=== PATIENT | male | born 1970 | race Caucasian/White ===

== ENCOUNTER 2021-09-04 01:40 | Emergency (ER) | payer BC, OTHER ==
[~2021-09-04] VITALS: Ht 162.6 cm; Wt 81.6 kg
[2021-09-04 01:45] VITALS: BP 159/101
--- NOTE | 2021-09-04 01:53 | NUR ---
patient ambulated to bed 1
--- NOTE | 2021-09-04 01:57 | NUR ---
ERMD at bedside for examination
--- NOTE | 2021-09-04 02:00 | NUR ---
RT at bedside for examination
[2021-09-04] MEDS ORDERED: ALBUTEROL 0.083% 2.5 MG/3 ML NEBU INH ONE ×2 (02:03→02:05)
[2021-09-04] MEDS ORDERED: FAMOTIDINE 20 MG/2 ML VIAL IVP ONE (02:05)
[2021-09-04] MEDS ORDERED: DEXAMETHASONE 10 MG/ML VIAL IVP ONE (02:05)
[2021-09-04] MEDS ORDERED: EPINEPHrine 1 MG/ML AMP IM ONE (02:05)
--- NOTE | 2021-09-04 02:25 | NUR ---
Pt in bed, no acute respiratory distress. 02 sat in RA at 88%. RT at bedside, administering breathing treatment. Informed pt and administered all ordered meds without event.
--- NOTE | 2021-09-04 03:05 | NUR ---
Pt requesting to use toilet. Pt states breathing improved much better. Pt ambulated to and back from toilet via steady gait.
[2021-09-04] MEDS ORDERED: EPIN1KIT31 IM (03:41)
[2021-09-04 03:49] VITALS: BP 120/77
--- NOTE | 2021-09-04 03:49 | NUR ---
Patient discharged with v/s stable. Written and verbal after care instructions given and explained. Patient alert, oriented and verbalized understanding of instructions. Ambulatory with steady gait. All questions addressed prior to discharge. ID band removed. Patient advised to follow up with PMD. Rx of epi pen given. Patient educated on indication of medication including possible reaction and side effects. Opportunity to ask questions provided and answered.
== END 2021-09-04 03:49 | disposition home or self-care (01) ==
LOC: MED 01:40
DX: T78.2XXA Anaphylactic shock, unspecified, initial encounter (principal)
CPT/HCPCS: 94640; 96372; 96374; 96375; 99291; J0171; J1100; J3490; J7613

== ENCOUNTER 2022-02-26 05:10 | Emergency (ER) | payer BC ==
[~2022-02-26] VITALS: Ht 162.6 cm; Wt 81.6 kg
[~2022-02-26 05:10] MED LIST: EPIN1KIT31 IM
[2022-02-26 05:20] VITALS: BP 135/100
--- NOTE | 2022-02-26 05:20 | NUR ---
TO BED AMBULATORY
[2022-02-26] MEDS ORDERED: predniSONE 20 MG TAB PO ONE (05:30)
[2022-02-26] MEDS ORDERED: ALBUTEROL 0.083% 2.5 MG/3 ML NEBU INH ONE ×2 (05:30→06:15)
[2022-02-26] MEDS ORDERED: ALBUTEROL SULFATE/IPRATROPIU 3 ML SOL IH ONE (05:30)
--- NOTE | 2022-02-26 05:35 | NUR ---
Respiratory Therapist at bedside for respiratory intervention.
--- NOTE | 2022-02-26 05:43 | NUR ---
X-Ray at bedside.
--- NOTE | 2022-02-26 06:00 | NUR ---
18G RIGHT AC IV ESTABLISHED . BLOOD COLLECTED AND HANDED TO LAB
[2022-02-26 06:02] LABS: BASOPHILS # (AUTO) 0.1 K/uL (0.00-0.22); BASOPHILS % (AUTO) 1.2 % (0.0-2.0); EOSINOPHILS # (AUTO) 0.4 K/uL (0-0.4); EOSINOPHILS % (AUTO) 5.6 % (0.0-4.0); HEMOGLOBIN 14.1 g/dL (12.0-18.0); LYMPHOCYTES # (AUTO) 2.6 K/uL (2.0-11.5); LYMPHOCYTES % (AUTO) 40.5 % (20.5-51.1); MEAN CORPUSCULAR HEMOGLOBIN 29 pg (27-31); MEAN CORPUSCULAR HGB CONC 34 g/dL (33-37); MONOCYTES # (AUTO) 0.4 K/uL (0.8-1.0); MONOCYTES % (AUTO) 5.7 % (1.7-9.3); NEUTROPHILS # (AUTO) 3.1 K/uL (1.8-7.7); PLATELET COUNT (AUTO) 248 K/uL (140-450); RED BLOOD CELL COUNT(AUTO) 4.89 MIL/uL (4.20-6.10); WHITE BLOOD COUNT (AUTO) 6.5 K/uL (4.8-10.8)
--- NOTE | 2022-02-26 06:03 | NUR ---
WENDI COLLECTED AND HANDED TO LAB
--- NOTE | 2022-02-26 06:10 | NUR ---
Dr. London examining patient.
[2022-02-26] MEDS ORDERED: NACL 0.9% 1,000 ML IV ONE (06:15)
[2022-02-26 06:21] LABS: ALBUMIN 3.9 g/dL (3.4-5.0); ANION GAP 12.4 (8-16); CREATININE 0.7 mg/dL (0.6-1.3); POTASSIUM 3.4 mmol/L (3.5-5.1); TOTAL BILIRUBIN 0.4 mg/dL (0.0-1.0)
--- NOTE | 2022-02-26 06:26 | NUR ---
Respiratory Therapist at bedside for respiratory intervention.
--- NOTE | 2022-02-26 06:30 | NUR ---
ASSUME CARE OF PT AT THIS TIME, PT C/O SOB SINCE THIS MORNING, DENIES ANY MEDICAL HISTORY, PT ON [employer], PT STATES HE CAN BREATH BETTER AFTER TWO PRIOR BREATHIG TREATMENTS.
[2022-02-26] MEDS ORDERED: predniSONE 20 MG TAB ONE (06:40)
[2022-02-26] MEDS ORDERED: MAG SULF 2000 MG/WATER PREMIX 50 ML IV ONE (06:40)
--- NOTE | 2022-02-26 07:11 | NUR ---
REPORT GIVEN TO CATHERINE STONE.
--- NOTE | 2022-02-26 08:12 | NUR ---
PT AMBULATED TO RESTROOM
[2022-02-26 08:21] VITALS: BP 134/68
[2022-02-26] MEDS ORDERED: PRED20TA5 PO (08:25)
[2022-02-26] MEDS ORDERED: ALBU0.0912 IH (08:25)
--- NOTE | 2022-02-26 08:30 | NUR ---
Patient discharged with v/s stable. Written and verbal after care instructions given and explained. Patient alert, oriented and verbalized understanding of instructions. Ambulatory with steady gait. All questions addressed prior to discharge. ID band removed. Patient advised to follow up with PMD. Rx of ALBUTEROL AND PREDNISONE given. Patient educated on indication of medication including possible reaction and side effects. Opportunity to ask questions provided and answered.
== END 2022-02-26 08:30 | disposition home or self-care (01) ==
LOC: MED 05:10
DX: J98.01 Acute bronchospasm (principal); Z20.822 Contact with and (suspected) exposure to COVID-19
CPT/HCPCS: 36415; 71045; 80053; 83880; 84484; 85025; 87426; 93005; 94640; 94760; 96365; 96366; 99285; J3475; J7512; J7613; Q0092

== ENCOUNTER 2023-07-20 01:45 | Inpatient (IN) | payer BC ==
[~2023-07-20] VITALS: Ht 162.6 cm; Wt 84.8 kg
[2023-07-20] VITALS (13 sets, daily range): BP systolic 110–145; BP diastolic 72–96; PULSE 88–115; RESP 16–24; TEMP 97.4–98.5; O2SAT 92–97
[~2023-07-20 01:45] MED LIST changes: +ALBU0.0912 IH; +PRED20TA5 PO
[2023-07-20] MEDS: methylPREDNISolone SS 125 MG/2 ML VIAL IVP ONE (02:16)
[2023-07-20] MEDS: ALBUTEROL SULFATE/IPRATROPIU 3 ML SOL IH ONE (02:19)
[2023-07-20] MEDS: ALBUTEROL 0.083% 2.5 MG/3 ML NEBU INH ONE (02:59)
[2023-07-20] MEDS: IPRATROPIUM 0.02% 0.5 MG/2.5 ML NEBU INH ONE (02:59)
[2023-07-20 03:27] LABS: FLU A ANTIGEN negative (NEGATIVE); FLU B ANTIGEN NEGATIVE (NEGATIVE)
[2023-07-20 03:44] LABS: BASOPHILS # (AUTO) 0.1 K/uL (0.00-0.22); BASOPHILS % (AUTO) 0.5 % (0.0-2.0); EOSINOPHILS # (AUTO) 0.3 K/uL (0-0.4); EOSINOPHILS % (AUTO) 2.7 % (0.0-4.0); HEMATOCRIT 40.6 % (36-52); HEMOGLOBIN 13.9 g/dL (12.0-18.0); LYMPHOCYTES # (AUTO) 2.8 K/uL (2.0-11.5); LYMPHOCYTES % (AUTO) 26.8 % (20.5-51.1); MEAN CORPUSCULAR HEMOGLOBIN 29 pg (27-31); MEAN CORPUSCULAR HGB CONC 34 g/dL (33-37); MEAN CORPUSCULAR VOLUME 85.4 fL (80-94); MONOCYTES # (AUTO) 0.5 K/uL (0.8-1.0); MONOCYTES % (AUTO) 4.9 % (1.7-9.3); NEUTROPHILS # (AUTO) 6.8 K/uL (1.8-7.7); NEUTROPHILS % (AUTO) 65.1 % (42.2-75.2); PLATELET COUNT (AUTO) 235 K/uL (140-450); RED BLOOD CELL COUNT(AUTO) 4.76 MIL/uL (4.20-6.10); RED CELL DISTRIBUTION WIDTH 12.8 % (11.6-13.7); WHITE BLOOD COUNT (AUTO) 10.4 K/uL (4.8-10.8)
[2023-07-20] MEDS ORDERED: cefTRIAXone 1,000 MG VIAL ONE (04:00)
[2023-07-20] MEDS ORDERED: AZITHROMYCIN 500 MG INJ VIAL IV ONE (04:10)
[2023-07-20 04:11] LABS: ANION GAP 13.7 (8-16); CALCIUM 8.8 mg/dL (8.5-10.1); CARBON DIOXIDE 26.5 mmol/L (21-32); CHLORIDE 103 mmol/L (98-107); CREATININE 0.7 mg/dL (0.6-1.3); GFR ARICAN-AMERICAN 152 mL/min (>90); GFR NON ARICAN-AMERICAN 125 mL/min (>90); GLUCOSE 141 mg/dL (74-106); POTASSIUM 3.2 mmol/L (3.5-5.1); SODIUM SERUM 140 mmol/L (136-145); UREA NITROGEN, BLOOD 17 mg/dL (7-18)
[2023-07-20 04:12] LABS: ALANINE AMINOTRANSFERASE 23 U/L (12-78); ALBUMIN 3.8 g/dL (3.4-5.0); ASPARTATE AMINOTRANSFERASE 15 U/L (15-37)
[2023-07-20] MEDS: AZITHROMYCIN 500 MG in DEXTROSE 5% 250 ML IV ONE (04:28)
[2023-07-20 04:30] LABS: ALKALINE PHOSPHATASE 84 U/L (50-136); TOTAL BILIRUBIN 0.4 mg/dL (0.0-1.0); TOTAL PROTEIN, SERUM 8.3 g/dL (6.4-8.2)
[2023-07-20] MEDS ORDERED: DEXAMETHASONE 10 MG/ML VIAL IVP SCH (05:00)
[2023-07-20] MEDS ORDERED: AMPICILLIN/SULBACTAM 1.5 GM VIAL ONE (05:47)
[2023-07-20] MEDS: AMPICILLIN/SULBACTAM 1.5 GM in NACL 0.9% 50 ML IV SCH (05:57)
[2023-07-20] MEDS ORDERED: methylPREDNISolone SS 40 MG in WATER STERILE 1 ML IV SCH (06:05)
[2023-07-20] MEDS ORDERED: methylPREDNISolone SS 40 MG/ML VIAL IVP SCH (07:10)
[2023-07-20] MEDS: ALBUTEROL SULFATE/IPRATROPIU 3 ML SOL IH SCH (07:52)
[2023-07-20] MEDS ORDERED: ALBUTEROL SULFATE/IPRATROPIU 3 ML SOL IH PRN (13:05)
[2023-07-20] MEDS: methylPREDNISolone SS 40 MG/ML VIAL IVP SCH (21:09)
[2023-07-20] MEDS: POTASSIUM CHLORIDE 10 MEQ TABER PO ONE (22:41)
[2023-07-21] VITALS (13 sets, daily range): BP systolic 114–139; BP diastolic 63–75; PULSE 78–118; RESP 16–20; TEMP 97.4–99.4; O2SAT 91–98
[2023-07-21 06:55] LABS: BASOPHILS % (AUTO) 0.2 % (0.0-2.0); EOSINOPHILS % (AUTO) 0.1 % (0.0-4.0); HEMOGLOBIN 13.2 g/dL (12.0-18.0); LYMPHOCYTES # (AUTO) 1.4 K/uL (2.0-11.5); MEAN CORPUSCULAR HEMOGLOBIN 29 pg (27-31); MEAN CORPUSCULAR HGB CONC 34 g/dL (33-37); MEAN CORPUSCULAR VOLUME 85.6 fL (80-94); MONOCYTES # (AUTO) 0.3 K/uL (0.8-1.0); MONOCYTES % (AUTO) 3.5 % (1.7-9.3); NEUTROPHILS # (AUTO) 7.4 K/uL (1.8-7.7); NEUTROPHILS % (AUTO) 81.2 % (42.2-75.2); PLATELET COUNT (AUTO) 238 K/uL (140-450); RED BLOOD CELL COUNT(AUTO) 4.56 MIL/uL (4.20-6.10); RED CELL DISTRIBUTION WIDTH 13.3 % (11.6-13.7); WHITE BLOOD COUNT (AUTO) 9.2 K/uL (4.8-10.8)
[2023-07-21 08:31] LABS: ALBUMIN 3.5 g/dL (3.4-5.0); ANION GAP 13.2 (8-16); CALCIUM 8.7 mg/dL (8.5-10.1); CARBON DIOXIDE 26.7 mmol/L (21-32); CREATININE 0.8 mg/dL (0.6-1.3); POTASSIUM 4.9 mmol/L (3.5-5.1); TOTAL BILIRUBIN 0.3 mg/dL (0.0-1.0); TOTAL PROTEIN, SERUM 7.9 g/dL (6.4-8.2)
[2023-07-22] VITALS (9 sets, daily range): BP systolic 121–129; BP diastolic 75–82; PULSE 90–112; RESP 14–20; TEMP 97.7–98; O2SAT 91–95
[2023-07-22 07:08] LABS: HEMOGLOBIN 13.2 g/dL (12.0-18.0); LYMPHOCYTES # (AUTO) 1.3 K/uL (2.0-11.5); LYMPHOCYTES % (AUTO) 8.5 % (20.5-51.1); MEAN CORPUSCULAR HEMOGLOBIN 29 pg (27-31); MEAN CORPUSCULAR HGB CONC 34 g/dL (33-37); MEAN CORPUSCULAR VOLUME 85.9 fL (80-94); MONOCYTES # (AUTO) 0.5 K/uL (0.8-1.0); MONOCYTES % (AUTO) 3.6 % (1.7-9.3); NEUTROPHILS % (AUTO) 87.9 % (42.2-75.2); PLATELET COUNT (AUTO) 263 K/uL (140-450); RED BLOOD CELL COUNT(AUTO) 4.54 MIL/uL (4.20-6.10); RED CELL DISTRIBUTION WIDTH 12.9 % (11.6-13.7); WHITE BLOOD COUNT (AUTO) 14.8 K/uL (4.8-10.8)
[2023-07-22 07:30] LABS: ALBUMIN 3.6 g/dL (3.4-5.0); ANION GAP 16.4 (8-16); CALCIUM 8.5 mg/dL (8.5-10.1); CARBON DIOXIDE 25.1 mmol/L (21-32); CREATININE 0.8 mg/dL (0.6-1.3); POTASSIUM 4.5 mmol/L (3.5-5.1); TOTAL BILIRUBIN 0.3 mg/dL (0.0-1.0)
[2023-07-23] VITALS (12 sets, daily range): BP systolic 123–130; BP diastolic 65–86; PULSE 68–115; RESP 14–20; TEMP 97.4–98.7; O2SAT 89–94
[2023-07-23 06:59] LABS: HEMATOCRIT 39.4 % (36-52); HEMOGLOBIN 13.2 g/dL (12.0-18.0); LYMPHOCYTES # (AUTO) 1.3 K/uL (2.0-11.5); LYMPHOCYTES % (AUTO) 9.6 % (20.5-51.1); MEAN CORPUSCULAR HEMOGLOBIN 29 pg (27-31); MEAN CORPUSCULAR HGB CONC 33 g/dL (33-37); MEAN CORPUSCULAR VOLUME 85.9 fL (80-94); MONOCYTES # (AUTO) 0.5 K/uL (0.8-1.0); MONOCYTES % (AUTO) 3.8 % (1.7-9.3); NEUTROPHILS # (AUTO) 11.4 K/uL (1.8-7.7); NEUTROPHILS % (AUTO) 86.6 % (42.2-75.2); PLATELET COUNT (AUTO) 258 K/uL (140-450); RED BLOOD CELL COUNT(AUTO) 4.59 MIL/uL (4.20-6.10); RED CELL DISTRIBUTION WIDTH 13.1 % (11.6-13.7); WHITE BLOOD COUNT (AUTO) 13.2 K/uL (4.8-10.8)
[2023-07-23 07:22] LABS: ALBUMIN 3.3 g/dL (3.4-5.0); ANION GAP 13.9 (8-16); CALCIUM 8.4 mg/dL (8.5-10.1); CARBON DIOXIDE 26.4 mmol/L (21-32); CREATININE 0.7 mg/dL (0.6-1.3); POTASSIUM 4.3 mmol/L (3.5-5.1); TOTAL BILIRUBIN 0.2 mg/dL (0.0-1.0); TOTAL PROTEIN, SERUM 7.5 g/dL (6.4-8.2)
[2023-07-23] MEDS ORDERED: MONTELUKAST SODIUM 10 MG TAB ONE (14:48)
[2023-07-23] MEDS ORDERED: AZIT250T4 PO (15:36)
[2023-07-23] MEDS ORDERED: BUDE180P IH (15:36)
[2023-07-23] MEDS ORDERED: ALBU0.0912 IH (15:36)
[2023-07-23] MEDS ORDERED: MONT-72 PO (15:36)
[2023-07-23] MEDS ORDERED: PRED20TA5 PO (15:36)
[2023-07-23] MEDS ORDERED: MONTELUKAST SODIUM 10 MG TAB PO SCH (17:00)
== END 2023-07-23 17:30 | disposition home or self-care (01) | DRG 193 ==
LOC: MED 01:45 → MTU 04:00
PROVIDERS: ADMIT Student in an Organized Health Care Education/Training Program; ATTEND Student in an Organized Health Care Education/Training Program
DX: J18.9 Pneumonia, unspecified organism (principal); J96.00 Acute respiratory failure, unspecified whether with hypoxia or hypercapnia; J45.901 Unspecified asthma with (acute) exacerbation; E87.6 Hypokalemia; D72.829 Elevated white blood cell count, unspecified; Z20.822 Contact with and (suspected) exposure to COVID-19; T38.0X5A Adverse effect of glucocorticoids and synthetic analogues, initial encounter; Y92.89 Other specified places as the place of occurrence of the external cause; Z88.5 Allergy status to narcotic agent
CPT/HCPCS: 36415; 36600; 71045; 80053; 82803; 84484; 85025; 87081; 93005; 94617; 94640; 96374; 96375; 99285; J0295; J0456; J0696; J2920; J2930; J7613; J7644; Q0092

== ENCOUNTER 2024-02-01 20:44 | Emergency (ER) | payer BC ==
[~2024-02-01] VITALS: Ht 162.6 cm; Wt 83.9 kg
[~2024-02-01 20:44] MED LIST changes: +AZIT250T4 PO; +BUDE180P IH; +MONT-72 PO
[2024-02-01 20:48] VITALS: BP 152/87; PULSE 110; RESP 22; TEMP 98; O2SAT 92
[2024-02-01] MEDS ORDERED: methylPREDNISolone SS 125 MG/2 ML VIAL ONE (20:58)
[2024-02-01] MEDS: ALBUTEROL SULFATE/IPRATROPIU 3 ML SOL IH ONE (21:08)
[2024-02-01] MEDS: ALBUTEROL SULFATE/IPRATROPIU 3 ML SOL IH SCH (21:41)
[2024-02-01 21:42] VITALS: PULSE 112; RESP 24; O2SAT 84
[2024-02-01] MEDS: methylPREDNISolone SS 125 MG in WATER STERILE 2 ML IV SCH (22:15)
[2024-02-01] MEDS: MAG SULF 2000 MG/WATER PREMIX 50 ML IV ONE (22:17)
[2024-02-01] MEDS ORDERED: DOXY-690 PO (23:21)
[2024-02-01] MEDS ORDERED: OXYM15SP72 NS (23:21)
[2024-02-01] MEDS ORDERED: PRED20TA5 PO (23:22)
[2024-02-01] MEDS: PSEUDOEPHEDRINE 30 MG TAB PO ONE (23:37)
[2024-02-01 23:46] VITALS: O2SAT 84
== END 2024-02-01 23:46 | disposition home or self-care (01) ==
LOC: MED 20:44
DX: J45.901 Unspecified asthma with (acute) exacerbation (principal); J18.9 Pneumonia, unspecified organism; Z79.899 Other long term (current) drug therapy; Z88.6 Allergy status to analgesic agent
CPT/HCPCS: 71045; 96365; 96375; 99284; J2919; J3475; Q0092; 94640